=== PATIENT | female | born 1975 | race Caucasian/White ===

== ENCOUNTER → 2020-05-26 08:01 | Outpatient (CLI) | payer OTHER, SELFPAY ==
--- NOTE | 2020-05-26 | DI.US.S_ITS ---
PROCEDURE: US PELVIC COMPLETE INDICATIONS: LOWER ABDOMINAL PAIN TECHNIQUE: Real-time scanning was performed of the pelvic organs, with image documentation. Additional endovaginal scanning was necessary due to incomplete visualization of the adnexal and endometrial structures by transabdominal scanning. COMPARISON: [facility], CR, XR PELVIS WITH BILATERAL LATERAL HIPS, 07/16/2019, 12:54. FINDINGS: Transabdominal scanning: Limited scanning through the kidneys shows no hydronephrosis. No pathologic free abdominal or pelvic fluid. Endovaginal scanning: Uterus: Uterus is normal in size at 7.3 x 5.9 x 4.5 cm. The uterus demonstrates generalized heterogeneity, without oliver fibroids identified. The endometrium measures 8 mm in combined thickness. Small calcifications can be seen along the endometrial stripe. Incidental note is made of nabothian cysts. Ovaries: Right ovary is not well seen. The left ovary measures 3.3 x 1.5 x 1.2 cm. The left ovary demonstrates normal appearing arterial and venous flow. No adnexal masses are seen on either side. IMPRESSION: No significant abnormality is seen for age. Right ovary not well seen. Dictated by: John Titus M.D. on 05/26/2020 at 9:56 Approved by: John Titus M.D. on 05/26/2020 at 9:58
--- NOTE | 2020-05-26 | DI.MG.S_ITS ---
BILATERAL DIGITAL SCREENING MAMMOGRAM 3D/2D WITH CAD: 05/26/2020 CLINICAL: Routine screening. Comparison is made to exams dated: 02/25/2017 mammogram and 03/23/2017 mammogram - . The tissue of both breasts is heterogeneously dense. This may lower the sensitivity of mammography. Current study was also evaluated with a Computer Aided Detection (CAD) system. There are benign masses in the left breast. There also are biopsy clips in the left breast. No significant masses, calcifications, or other findings are seen in either breast. There has been no significant interval change. IMPRESSION: BENIGN There is no mammographic evidence of malignancy. A 1 year screening mammogram is recommended. This exam was interpreted at Station ID: [id number]. NOTE: For mammograms, a report in lay terms will be sent to the patient. Approximately 15% of breast malignancies will not be visualized mammographically. In the management of a palpable breast mass, a negative mammogram must not discourage biopsy of a clinically suspicious lesion. Electronically Signed By: Kei youssef/esther:05/26/2020 09:50:15 letter sent: Normal Exam ACR BI-RADS Category 2: Benign Finding(s) 3342F
== END ==
PROVIDERS: Family Provider Nurse Practitioner; PCP Nurse Practitioner Family; Referring Provider Nurse Practitioner Family; Visit Provider Nurse Practitioner Family
DX: Z12.31 Encounter for screening mammogram for malignant neoplasm of breast (principal); R10.30 Lower abdominal pain, unspecified
CPT/HCPCS: 76856; 77063; 77067

== ENCOUNTER 2024-03-14 10:55 | Emergency (ER) | payer OTHER, MEDICAID, SELFPAY ==
[2024-03-14] VITALS (24 sets, daily range): BP systolic 110–148; BP diastolic 58–73; PULSE 63–76; RESP 16–23; TEMP 36.8; O2SAT 96–98; BMI 32.5
[2024-03-14 11:29] LABS: Add Manual Diff / Slide Review NO; Basophils Absolute Auto 0 /uL (0-100); Basophils Percent Auto 0.4 % (0-2); Eosinophils Absolute Auto 100 /uL (0-450); Eosinophils Percent Auto 0.5 % (2-4); Hematocrit 37.8 % (36-46); Hemoglobin 12.8 g/dL (12.0-16.0); Lymphocytes Absolute Auto 2400 /uL (1100-4500); Lymphocytes Percent Auto 19.6 % (25-40); Mean Corpuscular HGB Conc 33.9 % (30-36); Mean Corpuscular Hemoglobin 28.7 PG (26-34); Mean Corpuscular Volume 84.7 fL (80-100); Monocytes Absolute Auto 900 /uL (0-900); Monocytes Percent Auto 7.3 % (3-14); Neutrophils Absolute Auto 8800 /uL (1500-7000); Neutrophils Percent Auto 72.2 % (50-75); Platelet Count 224 X10^3/uL (150-400); Red Blood Cell Count 4.46 X10^6/uL (4.0-5.2); Red Cell Distribution Width 13.6 % (11.6-14.8); White Blood Cell Count 12.2 X10^3/uL (4.5-11.0)
[2024-03-14 11:41] LABS: Alanine Aminotransferase 18 IU/L (<35); Albumin 3.9 g/dL (3.5-5.0); Albumin Globulin Ratio 1.1 (1.0-2.8); Alkaline Phosphatase 57 U/L (38-126); Aspartate Aminotransferase 18 IU/L (14-36); BUN Creatinine Ratio 14.3 (6-22); Bilirubin Total 0.9 mg/dL (0.2-1.3); Blood Urea Nitrogen 9 mg/dL (7-17); Calcium 8.8 mg/dL (8.4-10.2); Carbon Dioxide 25 mmol/L (22-32); Chloride 103 mmol/L (98-107); Estimated Glomerular Filt Rate > 60 mL/min (>60); Globulin 3.6 g/dL (1.7-4.1); Glucose 117 mg/dL (70-100); HEMOLYSIS < 15 (0-50); Lipase 35 U/L (23-300); Potassium 3.6 mmol/L (3.4-5.1); Sodium 135 mmol/L (137-145); Total Protein 7.5 g/dL (6.3-8.2)
--- NOTE | 2024-03-14 13:42 | ED_ITS ---
HPI - Abdominal Pain General Chief Complaint: Abdominal Pain Stated Complaint: Black Stool . Stomach pain, hot and cold chills Time Seen by Provider: 03/14/24 12:25 Source: patient Mode of arrival: Ambulatory History of Present Illness HPI narrative: 48-year-old female complains of 3 days duration black stools. She also has diffuse abdominal discomfort. Some nausea but no emesis. She does not take blood thinner medications. She has not taking iron. She has not take Pepto- Bismol. No changes in medications. No changes in diet. She has not had bright red blood per rectum, no mucoid stools. Last bowel movement was earlier today. She has not feel dizzy. No recent nosebleeds or swallowing of blood. She denies recent exposure to antibiotics. No travel or camping. No household exposure to persons with similar symptoms. She does not recall having chronic abdominal issues like Crohn's disease, no inflammatory bowel disease, denies history of colitis or diverticulitis. No trauma injury or new activities. Related Data Home Medications Medication Instructions Recorded Confirmed VITAMIN D (Vitamin D3) 1,000 unit PO QDAY ##0 04/09/11 Previous Rx's Medication Instructions Recorded albuterol sulfate 90 mcg/actuation 0.09 mg IH Q4HP PRN #1 inh 11/15/16 aerosol inhaler (Proventil HFA) beclomethasone dipropionate 80 0 INH BID #3 inhalations 11/15/16 mcg/actuation aerosol inhaler (Qvar) cetirizine 10 mg tablet 10 mg PO QDAY #60 tabs 11/15/16 montelukast 10 mg tablet 10 mg PO QDAY #30 tabs 11/15/16 (Singulair) fluticasone propionate 50 1 spray intranasal BID ##1 12/02/16 mcg/actuation nasal spray,suspension (Flonase Allergy Relief) ciprofloxacin HCl 500 mg tablet 500 mg PO BID 10 days #20 tabs 03/14/24 metronidazole 500 mg tablet 500 mg PO TID 10 days #30 tabs 03/14/24 Allergies Allergy/AdvReac Type Severity Reaction Status Date / Time cephalexin [CEPHALEXIN] Allergy Mild HALLUCINATI Verified 03/14/24 11:08 ONS latex [LATEX] Allergy Unknown HIVES Verified 03/14/24 11:08 levothyroxine sodium Allergy Unknown PT REPORTS Verified 03/14/24 11:08 [LEVOTHYROXINE SODIUM] NOSE BLEEDS NOSE BLEEDS WHEN USING THIS MED Sulfa (Sulfonamide AdvReac Mild NAUSEA Verified 03/14/24 11:08 Antibiotics) [SULFA (SULFONAMIDE ANTIBIOTICS)] buspirone AdvReac Nausea Verified 03/14/24 11:30 Opioids - Morphine Analogues AdvReac Nausea Verified 03/14/24 11:31 Review of Systems Review of Systems Narrative: see HPI Patient History Surgical History (Updated 10/04/17 @ 05:54 by Conversion Provider) Status post loop electrosurgical excision procedure (LEEP) of cervix Status post tubal ligation (04/17/02) Family History (Updated 09/12/16 @ 00:00 by Conversion Provider) Grandmother Age: 98 Lung cancer Grandfather Hypertension Stroke Social History Smoking Status: Never smoker Smoking Status: Never smoker alcohol intake frequency: holidays/special occasions only Substance Use Type: marijuana Exam Narrative Exam Narrative: GENERAL: Well-developed patient, in mild distress. HEAD: Atraumatic. Normocephalic. EYES: Pupils equal round and reactive. Extraocular motions intact. No scleral icterus. No injection or drainage. ENT: Nose without bleeding, purulent drainage. Throat without erythema, tonsillar hypertrophy or exudate. Airway patent. NECK: Trachea midline. Non tender CARDIOVASCULAR: Regular rate and rhythm without murmurs, gallops, or rubs. RESPIRATORY: Clear to auscultation. Breath sounds equal bilaterally. No wheezes, rales, or rhonchi. GASTROINTESTINAL: Abdomen soft, non-tender, nondistended. EXTREMITIES: No edema or joint tenderness. BACK: Nontender without deformity or crepitance. No flank tenderness. NEURO: AOx3. Motor exam grossly nonfocal SKIN: No rash or erythema of visible areas Initial Vital Signs Initial Vital Signs: Vital Signs Pulse Rate 75 03/14/24 11:01 Respiratory Rate 20 03/14/24 11:01 Course Orders Ordered: ED Orders 03/14/24 14:09 CT angio Abd/Pel GI Bleed Stat 03/14/24 14:16 GI Panel (Film Array) Stat Occult Blood Screen Stat 03/14/24 14:36 Hemoglobin and Hematocrit Stat Discontinued Medications Ciprofloxacin (Cipro) 400 mg in 200 mls @ 200 mls/hr IV NOW ONE Stop: 03/14/24 16:39 Last Infusion: 03/14/24 17:06 Dose: Infused Documented By: Admin: 03/14/24 16:00 Dose: 200 mls/hr Documented By: RADHA Metronidazole (Metronidazole 500 Mg Tablet) 500 mg PO NOW ONE Stop: 03/14/24 15:41 Last Admin: 03/14/24 15:58 Dose: 500 mg Documented By: RADHA Ondansetron HCl (Ondansetron 4 Mg/2 Ml Inj) 4 mg IV NOW PRN PRN Reason: Nausea And Vomiting Ondansetron HCl (Ondansetron 4 Mg Odt) 4 mg PO NOW PRN PRN Reason: Nausea And Vomiting Pantoprazole Sodium (Pantoprazole 40 Mg Vial) 80 mg IV NOW ONE Stop: 03/14/24 14:11 Last Admin: 03/14/24 14:34 Dose: 80 mg Documented By: TK Vital Signs Vital signs: Vital Signs - 8 hr 03/14/24 13:00 03/14/24 13:00 03/14/24 13:30 Pulse Rate 66 68 Respiratory Rate 22 19 Blood Pressure 126/62 Pulse Oximetry 97 98 03/14/24 13:30 03/14/24 13:46 03/14/24 13:46 Pulse Rate 70 Respiratory Rate Blood Pressure 131/65 133/73 Pulse Oximetry 98 03/14/24 14:00 03/14/24 14:00 03/14/24 14:46 Pulse Rate 68 72 Respiratory Rate 16 Blood Pressure 121/60 Pulse Oximetry 96 97 03/14/24 14:48 03/14/24 14:48 03/14/24 15:00 Pulse Rate 67 66 Respiratory Rate Blood Pressure 148/67 H Pulse Oximetry 98 98 03/14/24 15:01 03/14/24 15:01 03/14/24 15:30 Pulse Rate 70 Respiratory Rate Blood Pressure 125/58 L 141/65 H Pulse Oximetry 96 03/14/24 15:30 03/14/24 16:00 03/14/24 16:01 Pulse Rate 67 75 69 Respiratory Rate Blood Pressure Pulse Oximetry 97 97 97 03/14/24 16:01 03/14/24 16:30 03/14/24 16:30 Pulse Rate 63 Respiratory Rate Blood Pressure 110/71 132/60 Pulse Oximetry 98 03/14/24 17:00 03/14/24 17:00 03/14/24 17:30 Pulse Rate 69 71 Respiratory Rate Blood Pressure 120/69 Pulse Oximetry 97 97 03/14/24 17:30 03/14/24 18:00 03/14/24 18:00 Pulse Rate 72 Respiratory Rate Blood Pressure 130/65 128/60 Pulse Oximetry 97 03/14/24 18:19 03/14/24 18:19 Pulse Rate 65 Respiratory Rate 23 Blood Pressure 130/61 Pulse Oximetry MDM - Abdominal Pain Lab Data Attestation: I reviewed the patient's lab results. Lab results narrative: White blood cell count 26484, hemoglobin 12.8, platelets adequate. CMP unremarkable, LFTs unremarkable, lipase negative. Urine dip test negative. 03/14/24 14:36 03/14/24 11:12 Labs: Lab Results 03/14/24 03/14/24 03/14/24 Range/Units 11:08 11:12 14:16 WBC 12.2 H (4.5-11.0) X10^3/uL RBC 4.46 (4.0-5.2) X10^6/uL Hgb 12.8 (12.0-16.0) g/dL Hct 37.8 (36-46) % MCV 84.7 (80-100) fL MCH 28.7 (26-34) PG MCHC 33.9 (30-36) % RDW 13.6 (11.6-14.8) % Plt Count 224 (150-400) X10^3/uL Neut % (Auto) 72.2 (50-75) % Lymph % (Auto) 19.6 L (25-40) % Grainger % (Auto) 7.3 (3-14) % Eos % (Auto) 0.5 L (2-4) % Baso % (Auto) 0.4 (0-2) % Neut # (Auto) 8800 H (4149-6195) /uL Lymph # (Auto) 2400 (6482-1828) /uL Grainger # (Auto) 900 (0-900) /uL Eos # (Auto) 100 (0-450) /uL Baso # (Auto) 0 (0-100) /uL Sodium 135 L (137-145) mmol/L Potassium 3.6 (3.4-5.1) mmol/L Chloride 103 (98-107) mmol/L Carbon Dioxide 25 (22-32) mmol/L BUN 9 (7-17) mg/dL Creatinine 0.63 (0.52-1.04) mg/dL Estimated GFR > 60 (>60) mL/min BUN/Creatinine Ratio 14.3 (6-22) Glucose 117 H (70-100) mg/dL Calcium 8.8 (8.4-10.2) mg/dL Total Bilirubin 0.9 (0.2-1.3) mg/dL AST 18 (14-36) IU/L ALT 18 (<35) IU/L Alkaline Phosphatase 57 (38-126) U/L Total Protein 7.5 (6.3-8.2) g/dL Albumin 3.9 (3.5-5.0) g/dL Globulin 3.6 (1.7-4.1) g/dL Albumin/Globulin Ratio 1.1 (1.0-2.8) Lipase 35 (23-300) U/L Serum , Qual Negative (Negative) Stool Occult Blood Negative (Negative) Stl C. cayetanensis PCR Not detected (Not Detect) Stool Rotavirus (PCR) Not detected (Not Detect) Stool Adenovirus (PCR) Not detected (Not Detect) Stool Astrovirus (PCR) Not detected (Not Detect) Stool Cryptosporidium PCR Not detected (Not Detect) Stl E.coli Shiga Tox PCR Not detected (Not Detect) St Sh/Enteroin Ecoli PCR Not detected (Not Detect) Stl Enterotoxigenic E PCR Not detected (Not Detect) Stool EPEC (PCR) Not detected (Not Detect) Stl E. histolytica PCR Not detected (Not Detect) Stool Giardia Lamblia PCR Not detected (Not Detect) Stool Sapovirus (PCR) Not detected (Not Detect) Stl P. shigelloides PCR Not detected (Not Detect) St Y.enterocolitica PCR Not detected (Not Detect) Stool Vibrio (PCR) Not detected (Not Detect) Stl Vibrio cholerae PCR Not detected (Not Detect) Stl Enteroaggr Ecoli PCR Not detected (Not Detect) Stl Norovirus GI/GII PCR Not detected (Not Detect) Campylobacter (PCR) Not detected (Not Detect) C. difficile Tox (PCR) Not detected (Not Detect) Salmonella (PCR) Not detected (Not Detect) 03/14/24 Range/Units 14:36 WBC (4.5-11.0) X10^3/uL RBC (4.0-5.2) X10^6/uL Hgb 12.7 (12.0-16.0) g/dL Hct 37.1 (36-46) % MCV (80-100) fL MCH (26-34) PG MCHC (30-36) % RDW (11.6-14.8) % Plt Count (150-400) X10^3/uL Neut % (Auto) (50-75) % Lymph % (Auto) (25-40) % Grainger % (Auto) (3-14) % Eos % (Auto) (2-4) % Baso % (Auto) (0-2) % Neut # (Auto) (2660-6778) /uL Lymph # (Auto) (2841-6349) /uL Grainger # (Auto) (0-900) /uL Eos # (Auto) (0-450) /uL Baso # (Auto) (0-100) /uL Sodium (137-145) mmol/L Potassium (3.4-5.1) mmol/L Chloride (98-107) mmol/L Carbon Dioxide (22-32) mmol/L BUN (7-17) mg/dL Creatinine (0.52-1.04) mg/dL Estimated GFR (>60) mL/min BUN/Creatinine Ratio (6-22) Glucose (70-100) mg/dL Calcium (8.4-10.2) mg/dL Total Bilirubin (0.2-1.3) mg/dL AST (14-36) IU/L ALT (<35) IU/L Alkaline Phosphatase (38-126) U/L Total Protein (6.3-8.2) g/dL Albumin (3.5-5.0) g/dL Globulin (1.7-4.1) g/dL Albumin/Globulin Ratio (1.0-2.8) Lipase (23-300) U/L Serum , Qual (Negative) Stool Occult Blood (Negative) Stl C. cayetanensis PCR (Not Detect) Stool Rotavirus (PCR) (Not Detect) Stool Adenovirus (PCR) (Not Detect) Stool Astrovirus (PCR) (Not Detect) Stool Cryptosporidium PCR (Not Detect) Stl E.coli Shiga Tox PCR (Not Detect) St Sh/Enteroin Ecoli PCR (Not Detect) Stl Enterotoxigenic E PCR (Not Detect) Stool EPEC (PCR) (Not Detect) Stl E. histolytica PCR (Not Detect) Stool Giardia Lamblia PCR (Not Detect) Stool Sapovirus (PCR) (Not Detect) Stl P. shigelloides PCR (Not Detect) St Y.enterocolitica PCR (Not Detect) Stool Vibrio (PCR) (Not Detect) Stl Vibrio cholerae PCR (Not Detect) Stl Enteroaggr Ecoli PCR (Not Detect) Stl Norovirus GI/GII PCR (Not Detect) Campylobacter (PCR) (Not Detect) C. difficile Tox (PCR) (Not Detect) Salmonella (PCR) (Not Detect) Point of care testing: Urine Dip Bedside Urine Glucose Negative Bedside Urine Bilirubin - Negative Bedside Urine Ketone - Negative Urine Specific [place] 1.010 Bedside Urine Occult Blood - Negative Bedside Urine pH 7.0 Bedside Urine Protein - Negative Bedside Urine Urobilinogen - Negative Bedside Urine Nitrite - Negative Bedside Urine Leukocytes - Negative Esterase MDM Narrative Medical decision making narrative: Black stools, no hx known UGIB, no peptobismol or iron, diffuse abdominal pain, no tenderness, not taking blood thinner medications. DDx consider UGIB, gastritis, PUD, JAMARCUS, esophagitis, other. Labs pending. IV Protonix. Keep NPO WBC 12.2, Hb 12.8, platelets adequate. CMP neg. CT Abd Pelvis GI bleeding protocol Stool guaiac negative. Stool enteric pathogens including Cdiff negative. CT abd pelvis without obvious source bleeding. Colitis changes noted. See radiology report. CT report discussed with patient, IV Cipro, PO Flagyl Repeat Hb no significant change. Rx for further oral abx sent to her pharmacy. Discussion about melena, not likely from colitis, might be need for follow-up EGD. Consider OTC antacid such as omeprazole daily. Advised to avoid alcohol while taking Flagyl, risks of emesis. Discharge home, improved, home with family, return precaustions discussed Discharge Plan Departure Patient Disposition: Home Clinical Impression: Colitis, Melanotic stools Activity Restrictions/Additional Instructions: 3 days duration of intermittent black stools, abdominal discomfort as well. No history of upper GI bleeding known. No blood thinner medications. No injury or trauma. Serum studies unremarkable, initial hemoglobin not much different than recent outpatient lab results, repeat hemoglobin here with stable. CT scanning of the abdomen was done with GI bleed protocol without contrast and with contrast, but no source of bleeding was identified. While you were here you did not seem to have bleeding symptoms. You CT scanning however did show possible colitis symptoms, if there is bleeding from this site it is usually bright red blood, not black in appearance, there may be 2 different problems going on. IV antibiotics ciprofloxacin with oral antibiotic Flagyl was given. Further antibiotics sent to your pharmacy for 10 day course. Take the antibiotics as prescribed. Because you have to had description of dark stools, there is possibility that you might be having some degree of upper GI bleeding unrelated, consider upper endoscopy in follow up. Recheck symptoms with your regular doctor at course of antibiotic completion. Return earlier to this/nearest emergency department for any change worsening symptoms or any concerns prior Prescriptions: New ciprofloxacin HCl 500 mg tablet 500 mg PO BID 10 Days Qty: 20 0RF metronidazole 500 mg tablet 500 mg PO TID 10 Days Qty: 30 0RF No Action VITAMIN D (Vitamin D3) 1,000 unit PO QDAY Qty: 0 cetirizine 10 MG tablet 10 mg PO QDAY Qty: 60 2RF beclomethasone dipropionate [Qvar] 80 MCG/PUFF aerosol 0 INH BID Qty: 3 3RF montelukast [Singulair] 10 MG tablet 10 mg PO QDAY Qty: 30 6RF albuterol sulfate [Proventil HFA] 90 MCG/PUFF HFA aerosol inhaler 0.09 mg IH Q4HP PRNQty: 1 4RF fluticasone propionate [Flonase Allergy Relief] 9.9 ML spray,suspension 1 spray Intranasal BID Qty: 1 1RF Referrals: Larisa Wesley ARNP [Primary Care Provider] - Stand Alone Forms: Patient Portal/API
--- NOTE | 2024-03-14 13:51 | PC.NURSE ---
Patient in pain. Provider updated and is aware. will continue to monitor.
--- NOTE | 2024-03-14 14:09 | DI.CT.S_ITS ---
PROCEDURE: CT ANGIO ABD/PEL GI BLEED INDICATIONS: GI bleeding protocol TECHNIQUE: After the administration of intravenous contrast, 2.5 mm thick sections acquired from the diaphragm to the symphysis. 10 mm maximum-intensity projection (MIP) reformats were then acquired. For radiation dose reduction, the following was used: automated exposure control. COMPARISON: None. FINDINGS: Image Quality: Diagnostic. Abdominal aorta: No aortic aneurysm or evidence of acute aortic syndrome. Mesenteric arteries: Patent without hemodynamically significant stenosis. Renal arteries: Patent without hemodynamically significant stenosis. OTHER: Lower Chest: No significant findings. Liver: No solid mass. Gallbladder: Gallbladder sludge versus small stones. No wall thickening or pericholecystic edema to suggest acute cholecystitis. Biliary ducts: No biliary dilation. Pancreas: No ductal dilation. Spleen: Size is within normal limits. Adrenal Glands: No adrenal nodules. Kidneys and Ureters: No hydronephrosis. No solid mass. No complex renal cystic lesion which requires follow up. Stomach and Bowel: Acute diverticulitis of the sigmoid colon, with wall thickening and pericolonic fat stranding. Peritoneum: No abnormal intraperitoneal fluid. No free air. Ventral Wall: No hernia. Abdominal Nodes: No retroperitoneal or mesenteric adenopathy by size criteria. Vessels: Aorta and inferior vena cava are normal in size. PELVIS: Pelvic Organs: Unremarkable. Bladder: Unremarkable. Pelvic Nodes: No enlarged lymph nodes. Miscellaneous: No inguinal hernias are seen. Bones: No aggressive osseous abnormality. IMPRESSION: Acute uncomplicated diverticulitis of the sigmoid colon. No evidence of active GI deep lead. No evidence of perforation. Dictated by: John Au M.D. on 03/14/2024 at 15:08 Approved by: John Au M.D. on 03/14/2024 at 15:16
[2024-03-14] MEDS: PANTOPRAZOLE 40 MG VIAL 80 MG IV (14:34)
[2024-03-14 14:43] LABS: Pregnancy Test Serum,Qual Negative (Negative)
[2024-03-14 14:45] LABS: Hematocrit 37.1 % (36-46); Hemoglobin 12.7 g/dL (12.0-16.0)
[2024-03-14 15:12] LABS: Occult Blood 1 Negative (Negative)
[2024-03-14 15:37] LABS: Adenovirus F 40/41 Not Detected (Not Detect); Astrovirus Not Detected (Not Detect); Campylobacter Not Detected (Not Detect); Clostridium difficile toxin AB Not Detected (Not Detect); Cryptosporidium Not Detected (Not Detect); Cyclospora cayetanensis Not Detected (Not Detect); Entamoeba histolytica Not Detected (Not Detect); Enteroaggregative E.coli Not Detected (Not Detect); Enteropathogenic E.coli Not Detected (Not Detect); Enterotoxigenic E.coli It/st Not Detected (Not Detect); Giardia lamblia Not Detected (Not Detect); Norovirus GI/GII Not Detected (Not Detect); Plesiomonsa shigelloides Not Detected (Not Detect); Rotavirus A Not Detected (Not Detect); Salmonella Not Detected (Not Detect); Sapovirus Not Detected (Not Detect); Shiga-like toxin-prod E.coli Not Detected (Not Detect); Shigella/Enteroinvasive E.coli Not Detected (Not Detect); Vibrio Not Detected (Not Detect); Vibrio cholerae Not Detected (Not Detect); Yersinia enterocolitica Not Detected (Not Detect)
[2024-03-14] MEDS: metroNIDAZOLE 500 MG TABLET PO (15:58)
[2024-03-14] MEDS: CIPROFLOXACIN 400 MG/200 ML PIGGYBACK 200 MG IV (16:00)
== END 2024-03-14 18:33 | disposition home or self-care (01) ==
PROVIDERS: Emergency Provider Emergency Medicine; Family Provider Nurse Practitioner; PCP Nurse Practitioner Family
DX: K52.9 Noninfective gastroenteritis and colitis, unspecified (principal); K92.1 Melena; R11.0 Nausea; Z11.52 Encounter for screening for COVID-19
CPT/HCPCS: 36415; 74174; 80053; 81003; 82270; 83690; 84703; 85014; 85018; 85025; 87507; 96365; 96375; 99284; J0744; J2470; Q9967